=== PATIENT | male | born 1950 | race Caucasian/White ===

== ENCOUNTER 2020-01-16 09:21 | Day surgery (SDC) | payer MEDICARE, OTHER ==
[~2020-01-16 09:21] MED LIST: Lactated Ringers 1,000 ML IV SCH; Sodium Chloride 0.9% 10 ML Syringe FLUSH PRN
[2020-01-16] MEDS ORDERED: Propofol 200 MG/20 ML SDV ONE ×3 (09:33→11:11)
--- NOTE | 2020-01-16 10:31 | PCM.PN ---
- General Info Date of Service: 01/16/20 - Review of Systems Systems Review Comment:: 69-year-old male referred for his initial colonoscopy. He was recently noted to have a positive cologuard test. He also recalls a previous episode of hematochezia. He denies any known family history of colon cancer.His recent history and physical is reviewed and no significant changes are noted. I discussed the proposed colonoscopy with the patient. Risks such as but not limited to bleeding and GI injury are reviewed. He agrees to proceed. - Patient Data Vitals - Most Recent: Last Vital Signs Temp 98.4 F 01/16/20 09:51 Pulse 100 01/16/20 09:51 Resp 20 01/16/20 09:51 BP 103/71 01/16/20 09:51 Pulse Ox 99 01/16/20 09:51 Weight - Most Recent: 68.946 kg Med Orders - Current: Current Medications Lactated Ringer's (Ringers, Lactated) 1,000 mls @ 125 mls/hr IV ASDIRECTED ROSSY Last Admin: 01/16/20 10:10 Dose: 125 mls/hr Sodium Chloride (Saline Flush) 10 ml FLUSH ASDIRECTED PRN PRN Reason: Keep Vein Open Discontinued Medications Propofol (Diprivan 20 Ml) Confirm Administered Dose 400 mg .ROUTE .STK-MED ONE Stop: 01/16/20 09:34 Sepsis Event Note - Focused Exam Vital Signs: Vital Signs Temp Pulse Resp BP Pulse Ox 01/16/20 09:51 98.4 F 100 20 103/71 99 Date Exam was Performed: 01/16/20 Time Exam was Performed: 10:29 - Problem List Review Problem List Initiated/Reviewed/Updated: Yes - My Orders Last 24 Hours: My Active Orders 01/16/20 09:15 Patient Status [ADT] Routine Peripheral IV Care [RC] . DIRECTED Verify Patient Consent Obtain [RC] ASDIRECTED Lactated Ringers [Ringers, Lactated] 1,000 ml IV ASDIRECTED Sodium Chloride 0.9% [Saline Flush] 10 ml FLUSH ASDIRECTED PRN Peripheral IV Insertion Adult [OM.PC] Routine - Assessment Assessment:: positive cologuard test - Plan Plan:: colonoscopy
--- NOTE | 2020-01-16 11:40 | PCM.OPNOTE ---
- General Post-Op/Procedure Note Date of Surgery/Procedure: 01/16/20 Operative Procedure(s): Colonoscopy with polypectomy Findings: Multiple colon polyps Pre Op Diagnosis: + Cologuard Post-Op Diagnosis: Colon Polyps Anesthesia Technique: MAC Primary Surgeon: Regis Ross Pathology: Colon Polyps EBL in mLs: 0 Complications: None Condition: Good
--- NOTE | 2020-01-16 13:14 | OR ---
Date of Procedure: 01/16/2020 PREOPERATIVE DIAGNOSIS: Positive Cologuard test. POSTOPERATIVE DIAGNOSIS: Multiple colon polyps. OPERATIONS PERFORMED: Colonoscopy with polypectomy. INDICATIONS FOR SURGERY: This 69-year-old male was referred for his initial colonoscopy. He was recently noted to have a positive Cologuard test. FINDINGS: Multiple polyps were noted on today's exam. 1-cm sessile polyps were noted in the ascending colon and the hepatic flexure. A 6-mm sessile polyp was noted in the transverse colon. There is an 8-mm pedunculated polyp in the sigmoid colon at the 35 cm level and there is a cluster of 2 pedunculated polyps each 1 to 1.5 cm in size in the sigmoid colon at the 18 cm level. The colon otherwise appears normal. DESCRIPTION OF PROCEDURE: The patient was taken to the operating room. He was given intravenous sedation, and with him in the left lateral decubitus position, digital rectal exam was performed showing no rectal masses. The Olympus colonoscope was inserted into the rectum. Retroflexed examination of the rectal canal was performed. The scope was then carefully advanced under direct visualization through the entire length of the colon until the cecum was reached. Colon was somewhat tortuous and reaching the cecum did require careful persistent manipulation as well as some hand pressure, but eventually the cecum was able to be cannulated and fully examined. The scope was then slowly withdrawn sequentially re-examining the colonic segments. During insertion and withdrawal of the scope, the above-described polyps are identified. As they are identified, each polyp was removed with a cautery snare. Some of the larger polyps were removed in a piecemeal fashion, but it did appear that all of the visualized polyps were completely removed during today's exam. After the exam had been completed and with no sign of any bleeding or other complication, the scope was removed and the patient was taken from the operating room in satisfactory condition. ESTIMATED BLOOD LOSS: 0. COMPLICATIONS: None. PROGNOSIS: Good. LA Ross MD /[id number]
== END 2020-01-16 12:45 | disposition home or self-care (01) ==
LOC: LL.SDS 09:21
PROVIDERS: ATTEND Surgery
DX: D12.2 Benign neoplasm of ascending colon (principal); D12.3 Benign neoplasm of transverse colon; D12.5 Benign neoplasm of sigmoid colon; Q43.8 Other specified congenital malformations of intestine; F17.210 Nicotine dependence, cigarettes, uncomplicated
CPT/HCPCS: 00811; J2704; J7120

== ENCOUNTER 2023-06-15 07:50 | Day surgery (SDC) | payer MEDICARE, OTHER ==
[~2023-06-15 07:50] MED LIST changes: -Lactated Ringers 1,000 ML IV SCH; +Propofol 200 MG/20 ML SDV ONE; -Sodium Chloride 0.9% 10 ML Syringe FLUSH PRN
[2023-06-15] MEDS ORDERED: Sodium Chloride 0.9% 10 ML Syringe FLUSH PRN (08:00)
[2023-06-15] MEDS ORDERED: Lactated Ringers 1,000 ML IV SCH (08:00)
== END 2023-06-15 10:50 | disposition home or self-care (01) ==
LOC: LL.SDS 07:50
PROVIDERS: ATTEND Surgery
DX: Z12.11 Encounter for screening for malignant neoplasm of colon (principal); D12.4 Benign neoplasm of descending colon; D12.3 Benign neoplasm of transverse colon; E78.5 Hyperlipidemia, unspecified; F17.210 Nicotine dependence, cigarettes, uncomplicated
CPT/HCPCS: 00812; 88305; J2704; J7120